=== PATIENT | male | born 1950 | race Caucasian/White ===

== ENCOUNTER → 2017-04-07 | Outpatient (CLI) | payer OTHER, MEDICARE | LOC: FIMAGING 14:19 | PROVIDERS: ATTEND Neurological Surgery | DX: M51.37 Other intervertebral disc degeneration, lumbosacral region (principal) ==

== ENCOUNTER → 2017-07-02 | Outpatient (CLI) | payer OTHER, MEDICARE | LOC: FIMAGING 13:09 | PROVIDERS: ATTEND Physician Assistant Surgical | DX: M43.07 Spondylolysis, lumbosacral region (principal); M54.40 Lumbago with sciatica, unspecified side ==